=== PATIENT | male | born 1980 | race Hispanic/Latino ===

== ENCOUNTER 2020-02-25 14:58 | Emergency (ER) | payer OTHER, SELFPAY ==
[2020-02-25] MEDS ORDERED: Ondansetron PF 4 MG/2 ML Vial ONE (15:43)
[2020-02-25] MEDS ORDERED: Acetaminophen 500 MG TAB ONE (15:43)
[2020-02-25 15:44] LABS: #Lymphocytes 0.8 thou/uL (1.20-3.40); #Monocytes 0.4 thou/uL (0.11-0.59); #Neutrophils 1.7 thou/uL (1.40-6.50); %Basophils 0.6 % (0.0-1.0); %Eosinophils 0.3 % (0.0-10.0); %Lymphocytes 27.6 % (21.0-51.0); %Monocytes 12.1 % (0.0-10.0); %Neutrophils 59.4 % (42.0-75.0); Hemoglobin 16.1 g/dL (14.0-18.0); Mean Corpuscular HGB CONC 36.1 g/dL (32.0-36.0); Mean Corpuscular Hemoglobin 33.7 pg (27.0-31.0); Mean Corpuscular Volume 93.3 fL (78.0-98.0); Mean Platelet Volume 7.1 fL (7.4-10.4); Platelet Count 170 thou/uL (130-400); RBC Distribution Width 11.3 % (11.5-14.5); White Blood Cell (WBC) Count 2.9 thou/uL (4.8-10.8)
[2020-02-25 16:05] LABS: ALT (SGPT) 54 U/L (8-55); AST (SGOT) 33 U/L (5-34); Albumin 4.2 g/dL (3.5-5.0); Alkaline Phosphatase 83 U/L (40-110); Anion Gap 12 mmol/L (10-20); BUN (Urea Nitrogen) 10 mg/dL (8.9-20.6); Bilirubin, Total 0.4 mg/dL (0.2-1.2); Calc. Creatinine Clearance 0 mL/min (70-130); Carbon Dioxide 25 mmol/L (22-29); Chloride 104 mmol/L (98-107); Estimated GFR-MDRD Greater than 90; Glucose 94 mg/dL (70-105); Potassium 3.9 mmol/L (3.5-5.1); Protein, Total 7.2 g/dL (6.0-8.3); Sodium 137 mmol/L (136-145)
--- NOTE | 2020-02-25 17:20 | RAD ---
Chest AP view INDICATION: Cough, shortness of breath and Covid negative testing COMPARISON: None FINDINGS: Lungs: Patchy airspace opacity within the right lung base suspicious for pneumonia. Cardiac silhouette: The cardiomediastinal silhouette appears within normal limits. Pulmonary vasculature: Normal Pleural spaces: No pleural effusion or pneumothorax is demonstrated. Upper abdomen: No abnormality seen. Osseous structures: No acute osseous abnormality. Additional findings: None. IMPRESSION: Right lower lobe pneumonia
[2020-02-25] MEDS ORDERED: Azithromycin 250 MG TAB ONE (17:31)
[2020-02-25] MEDS ORDERED: Dexamethasone 10 MG/ML VIAL ONE (17:32)
[2020-02-26 14:45] LABS: SARS-CoV-2 MS2 Positive; SARS-CoV-2 N Gene Negative; SARS-CoV-2 S Gene Negative; SARS-CoV-2 orf1ab Negative
== END 2020-02-25 17:58 | disposition home or self-care (01) ==
LOC: ERS 14:58
DX: U07.1 COVID-19 (principal); J12.89 Other viral pneumonia
CPT/HCPCS: 36415; 71045; 80053; 83605; 85025; 87635; 93005; 94760; 96361; 96374; 96375; J1100; J2405; U0003

== ENCOUNTER 2020-05-22 16:57 | Emergency (ER) | payer SELFPAY ==
[2020-05-22 17:25] LABS: Bacteria/HPF None Seen HPF (None Seen); Bilirubin Negative (Negative); Blood, Urine 3+ (Negative); Calcium Oxalate Crystals 4+ HPF (None Seen); Clarity Turbid (Clear); Glucose, Urine (Dipstick) Normal (Negative); Ketone, Urine Negative (Negative); Leukocyte Negative Leu/uL (Negative); Mucous/LPF 1+ LPF (<2+); Nitrite Negative (Negative); Protein, Urine (Dipstick) 30 mg/dL (Neg-Trace); Specific Gravity, Urine 1.032 (1.002-1.036); Squamous Epithelial 0-3 HPF (0-3); Urobilinogen Normal mg/dL (Less than 2); WBC/HPF 0-3 HPF (0-3)
[2020-05-22 17:32] LABS: RBC/HPF 21-50 HPF (0-3)
[2020-05-22 17:35] LABS: #Basophils 0.1 thou/uL (0.0-0.2); #Eosinphils 0.1 thou/uL (0.0-0.7); #Lymphocytes 2.2 thou/uL (1.20-3.40); #Monocytes 0.5 thou/uL (0.11-0.59); #Neutrophils 5.4 thou/uL (1.40-6.50); %Basophils 0.6 % (0.0-1.0); %Eosinophils 1.3 % (0.0-10.0); %Lymphocytes 26.6 % (21.0-51.0); %Monocytes 6.1 % (0.0-10.0); %Neutrophils 65.3 % (42.0-75.0); Mean Corpuscular Hemoglobin 33.2 pg (27.0-31.0); Mean Corpuscular Volume 94.8 fL (78.0-98.0); Mean Platelet Volume 6.9 fL (7.4-10.4); Platelet Count 287 thou/uL (130-400); RBC Distribution Width 11.7 % (11.5-14.5); Red Blood Cell (RBC) Count 4.81 mill/uL (4.70-6.10); White Blood Cell (WBC) Count 8.3 thou/uL (4.8-10.8)
[2020-05-22] MEDS ORDERED: Ketorolac Tromethamine 30 MG/ML VIAL ONE (17:53)
[2020-05-22 17:55] LABS: ALT (SGPT) 26 U/L (8-55); AST (SGOT) 20 U/L (5-34); Albumin 4.5 g/dL (3.5-5.0); Alkaline Phosphatase 84 U/L (40-110); Anion Gap 14 mmol/L (10-20); BUN (Urea Nitrogen) 18 mg/dL (8.9-20.6); Bilirubin, Total 0.4 mg/dL (0.2-1.2); Calc. Creatinine Clearance 0 mL/min (70-130); Calcium 8.9 mg/dL (7.8-10.44); Carbon Dioxide 25 mmol/L (22-29); Chloride 103 mmol/L (98-107); Estimated GFR-MDRD 80; Globulin 2.8 g/dL (2.4-3.5); Glucose 116 mg/dL (70-105); Lipase 30 U/L (8-78); Protein, Total 7.3 g/dL (6.0-8.3); Sodium 138 mmol/L (136-145)
--- NOTE | 2020-05-22 18:56 | CT ---
CT ABDOMEN AND PELVIS WITHOUT IV CONTRAST: Indication: Right flank pain. FINDINGS: Lung bases clear. Liver, spleen, pancreas unremarkable. Review of urinary tract shows mild left hydronephrosis and mild fullness in the left ureter. There is an obstructing calculus in the distal left ureter at the UVJ measuring in the 3 mm range. There is a nonobstructing calculus measuring 2 mm in the mid pole collecting structures of the left [place]. Right urinary tract unremarkable. The urinary bladder is contracted. Small bowel loops normal. The appendix is visualized and is mildly prominent. The appendix is upper normal diameter measuring i n the 9 mm range, however, there is no evidence of inflammatory change. There is a small appendicolit h in the distal appendix. No free fluid, mass or other acute process. IMPRESSION: 1. 3 mm calculus in the distal left ureter at the UVJ producing low grade obstructing change. 2. Nonobstructing calculus in the mid lower pole collecting structures of left kidney. 3. Incidentally noted is a mildly prominent appendix without inflammatory change. There is a small ap pendicolith in the distal appendix. POS: [facility]W
== END 2020-05-22 19:04 | disposition home or self-care (01) ==
LOC: ERS 16:57
DX: N13.2 Hydronephrosis with renal and ureteral calculous obstruction (principal)
CPT/HCPCS: 74176; 80053; 81003; 81015; 83690; 85025; 96361; 96374; J1885

== ENCOUNTER 2021-09-15 12:49 | Emergency (ER) | payer SELFPAY ==
[2021-09-15] MEDS ORDERED: diphenhydrAMINE 25 MG CAP ONE ×2 (14:05→14:08)
[2021-09-15] MEDS ORDERED: Dexamethasone 10 MG/ML VIAL ONE (14:06)
== END 2021-09-15 15:10 | disposition home or self-care (01) ==
LOC: ERS 12:49
DX: L50.0 Allergic urticaria (principal); T36.8X5A Adverse effect of other systemic antibiotics, initial encounter
CPT/HCPCS: 99282; J1100